=== PATIENT | female | born 1970 | race Caucasian/White ===

== ENCOUNTER 2022-10-02 10:51 | Outpatient (CLI) | payer OTHER, SELFPAY | END 2022-10-02 10:52 | disposition home or self-care (01) | PROVIDERS: PCP Physician Assistant Medical; Visit Provider Physician Assistant Medical | DX: R10.2 Pelvic and perineal pain (principal) | CPT/HCPCS: 80053 ==

== ENCOUNTER 2022-10-07 15:46 | Outpatient (CLI) | payer OTHER, SELFPAY ==
--- NOTE | 2022-10-07 16:00 | CRLHL7_ITS ---
For Patients: As a result of the Century Cures Act, medical imaging exams and procedure reports are released immediately into your electronic medical record. You may view this report before your referring provider. If you have questions, please contact your health care provider. INDICATION: Right ovarian cyst TECHNIQUE: Ultrasound pelvis transabdominal and transvaginal for better assessment or to better visualize the endometrium. Real time sonographic images with Spectral and color Doppler imaging of the ovaries were obtained. COMPARISON: None FINDINGS: Uterus: 7.9 centimeter x 3.6 centimeter x 3.9 centimeter normal echotexture of the myometrium. No masses. Endometrium: Transvaginal imaging was performed to better evaluate the endometrium. 0 meters in thickness. No sign of endometrial mass or fluid. Right ovary: 2.2 centimeter x 1.9 centimeter x 1.1 centimeter. No ovarian or adnexal masses. Normal arterial and venous blood flow. Left ovary: 1.9 centimeter x 1.1 centimeter x 1.2 centimeters no ovarian or adnexal masses. Normal arterial and venous blood flow. Cul-de-sac: No significant free fluid. IMPRESSION: Unremarkable pelvic ultrasound. Dictated by Coy North MD @ 10/07/2022 4:54:30 PM (Electronically Signed)
== END 2022-10-07 15:47 | disposition home or self-care (01) ==
LOC: US 15:47
PROVIDERS: PCP Physician Assistant Medical; Visit Provider Physician Assistant Medical
DX: N83.201 Unspecified ovarian cyst, right side (principal); R10.2 Pelvic and perineal pain
CPT/HCPCS: 76830; 76856

== ENCOUNTER 2023-09-27 13:24 | Outpatient (CLI) | payer OTHER, SELFPAY | END 2023-09-27 13:25 | disposition home or self-care (01) | PROVIDERS: PCP Physician Assistant Medical; Visit Provider Physician Assistant Medical | DX: I47.10 Supraventricular tachycardia, unspecified (principal); Z83.49 Family history of other endocrine, nutritional and metabolic diseases; Z13.220 Encounter for screening for lipoid disorders | CPT/HCPCS: 80053; 80061; 84443 ==

== ENCOUNTER 2024-06-19 06:15 | Day surgery (SDC) | payer OTHER, SELFPAY ==
[2024-06-19] VITALS (7 sets, daily range): BP systolic 115–130; BP diastolic 73–82; PULSE 71–85; RESP 14–20; TEMP 36.6; O2SAT 94–98; BMI 33.0
[2024-06-19] MEDS: ETHYL CHLORIDE 1 APPLICATION 1 APPLIC TOPICAL (07:05)
[2024-06-19] MEDS: LIDOCAINE 1%-EPI 1:100,000 20 ML INFILTRATI (07:05)
[2024-06-19] MEDS: BUPIVACAINE 0.5% 30 ML INJECTION (07:05)
[2024-06-19] MEDS: BACITRACIN OINTMENT BULK TUBE 1 APPLIC TOPICAL (07:35)
--- NOTE | 2024-06-19 07:41 | PM.ORPRC ---
Procedure Note Date of procedure: 06/19/24 Procedure: PREOPERATIVE DIAGNOSIS: 1. Right carpal tunnel syndrome POSTOPERATIVE DIAGNOSIS: 1. Right carpal tunnel syndrome PROCEDURE: 1. Right open carpal tunnel release SURGEON: Cortes Jones MD. YACHT HAND: Brown Quiroz PA-C ANESTHESIA: Local anesthetic (50:50 mixture of 1% lidocaine with epi and 0.5% marcaine plain) - 10ml total IMPLANTS: None EBL: 2 mL TOURNIQUET: None COMPLICATIONS: None evident INDICATIONS: The patient is a pleasant 53-year-old female who has experienced right hand numbess/tingling affecting the radial 3.5 digits for multiple months. It has progressively gotten worse. Nonoperative management has been tried and failed, and therefore surgery was recommended. DESCRIPTION OF PROCEDURE: Following a thorough discussion of risks, benefits, and alternatives consent was obtained and the operative extremity was marked. The patient was brought to the operating room and placed supine on the operating table. Local anesthesia induction was undertaken in preop holding. No antibiotics were administered as this was planned to be a local case only. Proper time-out was performed identifying proper patient, site, and procedure. The operative extremity was prepped and draped in the appropriate sterile fashion using ChloraPrep. An incision was made in line with the radial border of the ring finger beginning 1 cm distal to the distal wrist crease and progressing for another 2.5cm distal. Caution was taken to stay proximal to Irving's cardinal line. Sharp incision through the skin, subcutaneous tissue, and palmar fascia was performed. The thenar musculature was bluntly elevated off the transverse carpal ligament. The ligament was directly visualized, and divided sharply with a 15 blade. This was released from its most proximal to the most distal extent. Metzenbaum scissor was also utilized to release the fascia extension proximally. We confirmed complete release of the transverse carpal ligament. Closure was performed with 4-O nylon in interrupted fashion. Soft dressings were applied, and the patient was transferred to the recovery room in stable condition. PLAN: 1. Encourage elevation of the operative extremity. 2. Range of motion of the fingers and hand/wrist as tolerated. 3. Ibuprofen/acetaminophen and/or oxycodone as needed for pain control. 4. Follow up with PA visit or nurse visit in 12-16 days for wound check and suture removal.
== END 2024-06-19 08:15 | disposition home or self-care (01) ==
LOC: OR 06:15
PROVIDERS: PCP Physician Assistant Medical; Visit Provider Orthopaedic Surgery Sports Medicine
PROC: (CPT 64721; principal; 2024-06-19 07:15)
DX: G56.01 Carpal tunnel syndrome, right upper limb (principal)
CPT/HCPCS: 64721; J0665

== ENCOUNTER 2024-06-26 09:31 | Outpatient (CLI) | payer OTHER, SELFPAY ==
--- NOTE | 2024-06-26 10:46 | W.ANESCHARGE ---
Anesthesia Charges Start Date/Time Anesthesia Start Date: 06/26/24 Anesthesia Start Time: 10:14 Stop Date/Time Anesthesia Stop Date: 06/26/24 Anesthesia Stop Time: 10:43
--- NOTE | 2024-06-26 10:51 | W.ANESCHARGE ---
Anesthesia Charges Start Date/Time Anesthesia Start Date: 06/26/24 Anesthesia Start Time: 10:14 Stop Date/Time Anesthesia Stop Date: 06/26/24 Anesthesia Stop Time: 10:43
== END 2024-06-26 09:32 | disposition home or self-care (01) ==
LOC: OP CLINIC 09:31
PROVIDERS: PCP Physician Assistant Medical; Visit Provider Surgery
DX: Z12.11 Encounter for screening for malignant neoplasm of colon (principal); K64.8 Other hemorrhoids
CPT/HCPCS: 00812; 45378; J2704

== ENCOUNTER 2025-07-03 10:31 | Outpatient (CLI) | payer OTHER, SELFPAY ==
--- NOTE | 2025-07-03 10:45 | CRLHL7_ITS ---
For Patients: As a result of the Century Cures Act, medical imaging exams and procedure reports are released immediately into your electronic medical record. You may view this report before your referring provider. If you have questions, please contact your health care provider. INDICATION: BILATERAL SCREENING MAMMOGRAM, ASYMPTOMATIC 54 Y/O FEMALE COMPARISON: 10/14/2021, 06/10/2020, 05/16/2019 TECHNIQUE: Digital mammogram in CC and MLO projections including computer-aided detection (CAD) and tomosynthesis. BREAST COMPOSITION: There are scattered areas of fibroglandular density. FINDINGS: No suspicious findings. There are post surgical changes of reduction. ASSESSMENT: BI-RADS 2 Benign RECOMMENDATION: Annual screening mammogram. A lay language report of this examination will be provided to the patient. Dictated by: Anastacia Karimi MD @ 07/04/2025 12:07:06 (Electronically Signed)
== END 2025-07-03 10:32 | disposition home or self-care (01) ==
LOC: MAMMO 10:31
PROVIDERS: PCP Physician Assistant Medical; Visit Provider Physician Assistant Medical
DX: Z12.31 Encounter for screening mammogram for malignant neoplasm of breast (principal)
CPT/HCPCS: 77063; 77067